=== PATIENT | female | born 1990 | race Caucasian/White ===

== ENCOUNTER 2017-09-24 12:29 | Emergency (ER) | payer BC, OTHER ==
--- NOTE | 2017-09-24 13:00 | EDPHYS ---
Physician Documentation [facility] Name: Nelly Shannon Age: 27 yrs Sex: Female : 1990 Arrival Date: 09/24/2017 Time: 12:37 Bed 20 Private MD: None, None ED Physician Dhaval Frances HPI: 09/24 12:52 This 27 yrs old Female presents to ER via Ambulatory with complaints of Cyst. gs 12:52 Description: The affected area is small, erythematous. Onset: The symptoms/episode gs began/occurred 1 week(s) ago, and became persistent. Possible cause(s): sebaceous cyst. Associated signs and symptoms: Pertinent negatives: fever. Severity of symptoms: At their worst the symptoms were moderate, in the emergency department the symptoms are unchanged. The patient has not experienced similar symptoms in the past. 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 - Social history:: Smoking status: Patient/guardian denies using tobacco, The patient lives at home. - Ebola Screening: : No symptoms or risks identified at this time. ROS: 12:56 Constitutional: Negative for fever. gs 12:56 All other systems are negative. Exam: 12:56 Head/Face: Normocephalic, atraumatic. Eyes: Pupils equal round and reactive to light, gs extra-ocular motions intact. Lids and lashes normal. Conjunctiva and sclera are non-icteric and not injected. Cornea within normal limits. Periorbital areas with no swelling, redness, or edema. ENT: Nares patent. No nasal discharge, no septal abnormalities noted. Tympanic membranes are normal and external auditory canals are clear. Oropharynx with no redness, swelling, or masses, exudates, or evidence of obstruction, uvula midline. Mucous membranes moist. Neck: Trachea midline, no thyromegaly or masses palpated, and no cervical lymphadenopathy. Supple, full range of motion without nuchal rigidity, or vertebral point tenderness. No Meningismus. Cardiovascular: Regular rate and rhythm with a normal S1 and S2. No gallops, murmurs, or rubs. Normal PMI, no JVD. No pulse deficits. Respiratory: Lungs have equal breath sounds bilaterally, clear to auscultation and percussion. No rales, rhonchi or wheezes noted. No increased work of breathing, no retractions or nasal flaring. Abdomen/GI: Soft, non-tender, with normal bowel sounds. No distension or tympany. No guarding or rebound. No evidence of tenderness throughout. 12:56 Constitutional: The patient appears alert, awake. 12:56 Chest/axilla: Breasts: mass(es), that is small, in the right breast, that is tender, some erythema mils, cyst like structure, mild ballotable with some induration. 12:56 Skin: cellulitis, that is minimal. Vital Signs: 12:48 BP 112 / 65; Pulse 99; Resp 18; Temp 98.5; Pulse Ox 99% ; Weight 99.79 kg; Height 5 ft. sv 2 in. (157.48 cm); Pain 1/10; 12:48 Body Mass Index 40.24 (99.79 kg, 157.48 cm) sv MDM: 12:50 Patient medically screened. [facility] 12:56 Differential diagnosis: abscess, cellulitis, sebaceous cyst. Data reviewed: vital gs signs, nurses notes. ED course: plan to cool down with abx plan to refer for cyst enucleation. Administered Medications: No medications were administered Disposition: 09/24/17 13:00 Discharged to Home. Impression: Sebaceous cyst, Cellulitis of chest wall. - Condition is Stable. - Discharge Instructions: Epidermal Cyst. - Prescriptions for Clindamycin HCl 150 mg Oral Capsule - take 2 capsule by ORAL route every 8 hours for 7 days; 42 capsule. - Medication Reconciliation Form, Thank You Letter, Antibiotic Education, Prescription Opioid Use form. - Follow up: Kalia Collazo MD; When: 2 - 3 days; Reason: Re-evaluation by your physician. Signatures: Nehal Vail RN RN sv Anderson, Corey, MD MD cha Starr, Gregory, MD MD Corrections: (The following items were deleted from the chart) 13:05 13:00 09/24/2017 13:00 Discharged to Home. Impression: Sebaceous cyst; Cellulitis of sv chest wall. Condition is Stable. Forms are Medication Reconciliation Form, Thank You Letter, Antibiotic Education, Prescription Opioid Use. Follow up: Kalia Collazo; When: 2 - 3 days; Reason: Re-evaluation by your physician. gs
--- NOTE | 2017-09-24 13:00 | ER ---
Nurse's Notes [facility] Name: Nelly Shannon Age: 27 yrs Sex: Female : 1990 Arrival Date: 09/24/2017 Time: 12:37 Bed 20 Private MD: None, None Diagnosis: Sebaceous cyst;Cellulitis of chest wall Presentation: 09/24 12:41 Presenting complaint: Patient states: she had a "little cyst" on her right breast and sv had well woman exam and it has grown since the MD was doing a breast exam. Redness has increased. Denies fever. Pt stated she attempted to augustni it at home. Transition of care: patient was not received from another setting of care. Onset of symptoms was September 2017. Risk Assessment: Do you want to hurt yourself or someone else? Patient reports no desire to harm self or others. Initial Sepsis Screen: Does the patient meet any 2 criteria? No. Patient's initial sepsis screen is negative. Does the patient have a suspected source of infection? No. Patient's initial sepsis screen is negative. Care prior to arrival: None. 12:41 Method Of Arrival: Ambulatory sv 12:41 Acuity: HEIDI 4 sv Triage Assessment: 12:41 General: Appears in no apparent distress. comfortable, Behavior is calm, cooperative, sv appropriate for age. Pain: Complains of pain in right breast Pain currently is 1 out of 10 on a pain scale. EENT: No signs and/or symptoms were reported regarding the EENT system. Neuro: Level of Consciousness is awake, alert, obeys commands, Oriented to person, place, time, situation, Moves all extremities. Full function Gait is steady. Cardiovascular: Patient's skin is warm and dry. Respiratory: Respiratory effort is even, unlabored, Respiratory pattern is regular, symmetrical. Derm: Skin is pink, warm \\T\\ dry. Abscess located on right breast is quarter sized, has no drainage, is red, is raised, was lanced by patient prior to arrival. 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 - Social history:: Smoking status: Patient/guardian denies using tobacco, The patient lives at home. - Ebola Screening: : No symptoms or risks identified at this time. Screenin:54 Abuse screen: Denies threats or abuse. Denies injuries from another. Nutritional sv screening: No deficits noted. Tuberculosis screening: No symptoms or risk factors identified. Fall Risk None identified. Assessment: 13:05 Reassessment: Patient appears in no apparent distress at this time. No changes from sv previously documented assessment. Patient and/or family updated on plan of care and expected duration. Pain level reassessed. Patient is alert, oriented x 3, equal unlabored respirations, skin warm/dry/pink. Vital Signs: 12:48 BP 112 / 65; Pulse 99; Resp 18; Temp 98.5; Pulse Ox 99% ; Weight 99.79 kg; Height 5 ft. sv 2 in. (157.48 cm); Pain 1/10; 12:48 Body Mass Index 40.24 (99.79 kg, 157.48 cm) sv ED Course: 12:37 Patient arrived in ED. mr 12:37 None, None is Private Physician. mr 12:41 Arm band placed on right wrist. sv 12:45 Dhaval Frances MD is Attending Physician. gs 12:45 Patient has correct armband on for positive identification. Placed in gown. Bed in low sv position. Pulse ox on. NIBP on. Door closed. Head of bed elevated. 12:46 Nehal Vail RN is Primary Nurse. sv 12:49 Served as a component engineer for breast exam for cyst. sv 12:51 Triage completed. sv 12:59 Kalia Collazo MD is Referral Physician. gs 13:05 Patient did not have IV access during this emergency room visit. sv Administered Medications: No medications were administered Outcome: 13:00 Discharge ordered by . gs 13:05 Discharged to home ambulatory. sv 13:05 Condition: stable 13:05 Discharge instructions given to patient, Instructed on discharge instructions, follow up and referral plans. medication usage, Demonstrated understanding of instructions, follow-up care, medications, Prescriptions given X 1. 13:05 Patient left the ED. sv Signatures: Nehal Vail RN RN Batsheva Daley mr Dhaval Frances MD MD gs
== END 2017-09-24 13:05 | disposition home or self-care (01) ==
LOC: ER 12:29
DX: L72.3 Sebaceous cyst (principal); L03.313 Cellulitis of chest wall; Z88.0 Allergy status to penicillin
CPT/HCPCS: 99283

== ENCOUNTER 2017-09-26 08:04 | Day surgery (SDC) | payer BC ==
[2017-09-26] MEDS: Ringers Lactate 1,000 ML IV ONE ×2 (08:34→09:17)
[2017-09-26] MEDS ORDERED: CIPROFLOXACIN 400mg IV 400 MG/200 ML BAG IV ONE (08:47)
[2017-09-26 08:51] LABS: Absolute Lymphocytes (CBC) 1.6 K/uL (0.7-4.9); Absolute Monocytes 0.7 K/uL (0.1-1.3); Absolute Neutrophil 5.2 K/uL (1.8-8.0); Basophils % 0.3 % (0-1.3); Eosinophils % 1.9 % (0-4.4); Hematocrit 40.8 % (36.0-45.0); Lymphocytes % 20.9 % (15.3-44.8); MCH 29.5 pg (27.0-35.0); MCV 88.5 fL (80-100); MPV 9.5 fL (7.6-11.3); Monocytes % 8.9 % (3.3-12.3); RBC Red Blood Cell Count 4.61 M/uL (3.86-4.86)
[2017-09-26] MEDS ORDERED: MIDAZOLAM HCL 2 MG/2 ML INJ ONE (09:16)
[2017-09-26] MEDS ORDERED: PROPOFOL 200 MG/20 ML VIAL IV ONE (09:24)
[2017-09-26] MEDS ORDERED: ONDANSETRON HCL 40 MG/20 ML VIAL ONE (09:25)
[2017-09-26] MEDS ORDERED: LIDOCAINE 2% MPF 5 ML VIAL ONE (09:25)
[2017-09-26] MEDS ORDERED: FENTANYL CITR 100 MCG/2 ML ONE (09:25)
[2017-09-26 09:33] LABS: BUN Blood Urea Nitrogen 10 mg/dL (7-18); Bicarbonate 25 mmol/L (21-32); Glucose Level 89 mg/dL (74-106); Potassium 3.6 mmol/L (3.5-5.1); Sodium Level 141 mmol/L (136-145)
--- NOTE | 2017-09-26 09:49 | P.BOP ---
Preoperative diagnosis: infected right breast mass with cellulitis Postoperative diagnosis: same Primary procedure: Right beast lumpectomy, infected with abscess drainage Orientor: DAVIAN BARBER Estimated blood loss: <10cc Specimen: mass and pus culture Findings: see dicta Anesthesia: General Complications: None Drain(s): Other Transferred to: Recovery Room Condition: Good
[2017-09-26] MEDS: MEPERIDINE HCL 25 MG/0.5 ML ONE ×2 (10:06→10:16)
--- NOTE | 2017-09-26 19:44 | OP ---
Surgeon: Kalia Collazo MD Preoperative Diagnoses: Infected right breast mass with cellulitis and abscess. Postoperative Diagnoses: Infected right breast mass with cellulitis and abscess. Procedures: Right breast lumpectomy 3 x 3 cm infected with the drainage of an abscess. Anesthesia: General plus local. Specimen: Mass and pus for culture. Findings: The patient has a mass on the right inner upper quadrant of her breast. There is associat ion of abscess near-by with cellulitis of the skin. Indications: This is a case of a 27-year-old patient, who comes to us with a mass, which she felt be fore palpated, but she has not taken care of it and now she noticed redness over the area and tender, and increased temperature. She comes to my office. She was diagnosed with a mass and also an absce ss. The benefits, alternatives, and risks of a right breast lumpectomy with drainage of abscess were fully explained to the patient, and also will be sent as a biopsy of the breast with benefits, alter natives, and risks including, but not limited to infection, bleeding, damage to adjacent structures, anesthesia complication, nonhealing wound, IA, and even . She also understands this may not rel ieve any symptoms. She might need more than one surgical intervention. She understands the importan ce of dressing changes after that and follow up with the biopsy of this to make sure we do not have a ny pathology or neoplastic event that requires further intervention. She feels comfortable doing the dressing changes. Description Of Procedure: The patient was brought to the operating room, placed in supine position. A time-out was called. Right breast was prepped and draped in a sterile fashion. After that, a sha rp incision of the skin was made over the erythematous areas and the skin was involved. We proceeded to take the skin with the mass itself. The incision was carried down all the way to the deep breast tissue. The mass was then incised, removed. We noticed next to the mass there is an abscess with p urulent discharge. Once the mass was removed, the abscess was addressed with loculations present. T he area was irrigated. The pus was cultured. Hemostasis was obtained, and the area was packed with wet-to-dry dressing. No other masses palpated in this area. The patient tolerated the procedure wel l. The patient was sent to Recovery in stable condition. DIAMANTE/ELVA Voice ID: [id number] Report ID: [id number]
--- NOTE | 2017-09-26 19:44 | DS ---
Date of Discharge: 09/26/2017 Diagnoses: Infected right breast mass with cellulitis and abscess. Procedure: Right breast lumpectomy, infected with abscess drainage. Disposition: Home. Activity: As tolerated. No heavy lifting. Follow up in my office in 1 week. Call for appointment [phone]. Keep area dry for 24 hours then remove the dressings, wet-to-dry normal saline daily, may take a shower with dressings off. Medications: Include Bactrim DS p.o. b.i.d., Tylenol No. 3 q.4 hours p.r.n. pain, and normal saline. Followup: Follow up in my office in 1 week. The patient was advised the importance in the future of breast examinations, and she may require imaging when she allows us to do so, since right now it is too tender. DIAMANTE/ELVA Voice ID: [id number] Report ID: [id number]
== END 2017-09-26 11:35 | disposition home or self-care (01) ==
LOC: OR 08:04
PROVIDERS: ATTEND Surgery
PROC: 0H9T0ZZ Drainage of Right Breast, Open Approach (ICD-10-PCS; 2017-09-26)
PROC: 0HBT0ZX Excision of Right Breast, Open Approach, Diagnostic (ICD-10-PCS; principal; 2017-09-26 10:00)
DX: L72.0 Epidermal cyst (principal); N60.81 Other benign mammary dysplasias of right breast; N61.1 Abscess of the breast and nipple; Z88.0 Allergy status to penicillin
CPT/HCPCS: 36415; 80048; 84703; 85025; 87070; 87075; 87205; 88304; 88305; J0744; J2175; J2250; J2405; J3010

== ENCOUNTER 2024-02-13 07:51 | Day surgery (SDC) | payer BC ==
--- OUTSIDE RECORDS SUMMARY | 2024-02-13 07:54 | XMS REPORT | Continuity of Care Document ---
Author Name Unknown Address [address] [place] [address] [address] [id number] [facility] thconnect Address [address] [facility] [address] [place] [address] Care Team Providers Care Cane Pusher Name Role Phone [email or web address] Attending Clinician Shannona twyla [email or web address] Admitting Clinician Shannona ble Payers Payer Name Policy Type Policy Number Effective Date Expirati on Date Source [place] [id number] 2020 00:00:00 Encounters Start Date/Time End Date/Time Encounter Type Admission Type Attending Clinicians Care Facility Care Department Encounter ID Source 2023-01-12 00:00:00 2023-01-12 00:00:00 Outpatient [email or web address] diyala_S PRIV PRIV [id number] [facility] 2023-01-12 00:00:00 2023-01-12 00:00:00 Outpatient [email or web address] diyala_S PRIV PRIV [id number] [facility] 2022-12-20 00:00:00 2022-12-20 00:00:00 Outpatient [email or web address] diyala_S PRIV PRIV [id number] [facility] 2022-12-16 00:00:00 2022-12-16 00:00:00 Outpatient [email or web address]_Ka diyala_S PRIV PRIV [id number] [facility] 2022-12-07 00:00:00 2022-12-07 00:00:00 Outpatient [email or web address] diyala_S PRIV PRIV [id number] [facility]
[2024-02-13] MEDS ORDERED: CLINDAMYCIN 600MG/D5W 50 ML IV ONE (08:20)
[2024-02-13 08:23] LABS: Absolute Basophils 0.1 K/uL (0-0.5); Absolute Eosinophils 0.3 K/uL (0-0.5); Absolute Lymphocytes (CBC) 1.7 K/uL (0.7-4.9); Absolute Monocytes 0.6 K/uL (0.1-1.3); Absolute Neutrophil 5.8 K/uL (1.8-8.0); Basophils % 0.7 % (0-1.3); Hematocrit 39.9 % (36.0-45.0); Hemoglobin 13.5 g/dL (12.0-15.0); Lymphocytes % 20.3 % (15.3-44.8); MCH 29.8 pg (27.0-35.0); MCHC 33.9 g/dL (32.0-36.0); MCV 88.2 fL (80-100); MPV 8.9 fL (7.6-11.3); Monocytes % 7.3 % (3.3-12.3); Neutrophils % 68.7 % (41.7-73.7); Platelets 263 thou/uL (152-406); RBC Red Blood Cell Count 4.53 M/uL (3.86-4.86); Red Cell Distribution Width 13.2 % (12.1-15.2)
[2024-02-13 08:38] LABS: Albumin 3.1 g/dL (3.4-5.0); Albumin/Globulin Ratio 0.6 (1.1-1.8); Anion Gap 7.4 mEq/L (5.0-15.0); Bilirubin Total 0.4 mg/dL (0.2-1.0); Globulin 4.8 g/dL (2.3-3.5); Potassium 3.4 mEq/L (3.5-5.1); Protein, Total 7.9 g/dL (6.4-8.2)
[2024-02-13 08:45] LABS: Urine Bacteria None Seen /HPF (<20); Urine Bilirubin NEGATIVE (Negative); Urine Blood Negative (Negative); Urine Clarity Extremely Turbid (Clear); Urine Color Yellow (Yellow); Urine Culture Reflex Order NOT NEEDED; Urine Glucose NEGATIVE (Negative); Urine Ketones NEGATIVE (Negative); Urine Microscopic Reflex YN ORDER UMIC; Urine Mucus 1+ /HPF (None Seen); Urine Nitrite NEGATIVE (Negative); Urine Protein TRACE (Negative); Urine RBC <5 /HPF (None Seen); Urine Urobilinogen Normal (Normal); Urine WBC <5 /HPF (<5)
--- NOTE | 2024-02-13 09:12 | RAD REPORT ---
EXAMINATION: Pelvis W/Cont CLINICAL INDICATION: Female, 33 years old. suprapubic abscess TECHNIQUE: CT pelvis was performed, with IV contrast, as per department protocol. Axial, sagittal and coronal reconstructions were obtained. One or more of the following dose reduction techniques were used: Automated exposure control, adjustment of the mA and/or kV according to patient size, and/or it erative reconstruction. Unless otherwise specified, incidental findings do not require dedicated imaging follow-up. [id number]. IV CONTRAST: Yes COMPARISON: No prior exam. FINDINGS: KIDNEYS AND URETERS: Normal size and contour. No hydronephrosis. GASTROINTESTINAL TRACT: Stomach is non-dilated. Small bowel has normal course and caliber. No colonic wall thickening or pericolonic inflammatory changes. LYMPH NODES: No lymphadenopathy. ABDOMINAL AORTA AND OTHER VESSELS: Normal caliber aorta and IVC. MUSCULOSKELETAL: No acute or suspicious osseous abnormality. ADDITIONAL FINDINGS: Midline enhancing fluid collection at the vagina measuring 1.9 x 1.2 x 3.7 cm. T his is at the 12:00 position. Stranding is present at the mons pubis. Small fat-containing periumbilical hernia. IMPRESSION: Midline enhancing fluid collection at the 12:00 position in the region of the labia concerning for an abscess.
--- NOTE | 2024-02-13 09:42 | EDPHYS ---
Physician Documentation [facility] Name: Nelly Shannon Age: 33 yrs Sex: Female : 1990 Arrival Date: 02/13/2024 Time: 07:51 Bed 20 Private MD: ED Physician Gilberto Carter HPI: 02/12 08:10 This 33 yrs old Female presents to ER via Ambulatory with complaints of abdominal sp3 abscess. 08:10 33-year-old female with history of multiple suprapubic abscesses operatively drained by sp3 Dr. Collazo now returns to the ED with chief complaint suprapubic abscess recurrent in nature for approximately 1 week. Patient states that the pain has increased there as well. She denies any fever, surface erythema or rash, lymphadenopathy, other abdominal pain, or any other signs or symptoms on ROS at this time.. Historical: - Allergies: 07:55 PENICILLINS; ll1 - PMHx: 08:00 None; ll1 - PSHx: 08:00 section; Breast reduction; ll1 - Immunization history:: Adult Immunizations up to date. - Infectious Disease History:: Denies. - Social history:: Smoking status: Patient denies any tobacco usage or history of. ROS: 08:11 Constitutional: Negative for fever, chills, and weight loss, Eyes: Negative for injury, sp3 pain, redness, and discharge, ENT: Negative for injury, pain, and discharge, Neck: Negative for injury, pain, and swelling, Cardiovascular: Negative for chest pain, palpitations, and edema, Respiratory: Negative for shortness of breath, cough, wheezing, and pleuritic chest pain, Abdomen/GI: Negative for abdominal pain, nausea, vomiting, diarrhea, and constipation, Back: Negative for injury and pain, MS/Extremity: Negative for injury and deformity, Neuro: Negative for headache, weakness, numbness, tingling, and seizure, Psych: Negative for depression, anxiety, suicide ideation, homicidal ideation, and hallucinations, Allergy/Immunology: Negative for hives, rash, and allergies, Endocrine: Negative for neck swelling, polydipsia, polyuria, polyphagia, and marked weight changes, 08:11 All other systems are negative, Exam: 08:11 Constitutional: This is a well developed, well nourished patient who is awake, alert, sp3 and in no acute distress. Head/Face: Normocephalic, atraumatic. Eyes: Pupils equal round and reactive to light, extra-ocular motions intact. Lids and lashes normal. Conjunctiva and sclera are non-icteric and not injected. Cornea within normal limits. Periorbital areas with no swelling, redness, or edema. Neck: Trachea midline, no thyromegaly or masses palpated, and no cervical lymphadenopathy. Supple, full range of motion without nuchal rigidity, or vertebral point tenderness. No Meningismus. Chest/axilla: Normal chest wall appearance and motion. Nontender with no deformity. No lesions are appreciated. Cardiovascular: Regular rate and rhythm with a normal S1 and S2. No gallops, murmurs, or rubs. Normal PMI, no JVD. No pulse deficits. Respiratory: Lungs have equal breath sounds bilaterally, clear to auscultation and percussion. No rales, rhonchi or wheezes noted. No increased work of breathing, no retractions or nasal flaring. Back: No spinal tenderness. No costovertebral tenderness. Full range of motion. MS/ Extremity: Pulses equal, no cyanosis. Neurovascular intact. Full, normal range of motion. Neuro: Awake and alert, GCS 15, oriented to person, place, time, and situation. Cranial nerves II-XII grossly intact. Motor strength 5/5 in all extremities. Sensory grossly intact. Cerebellar exam normal. Normal gait. Psych: Awake, alert, with orientation to person, place and time. Behavior, mood, and affect are within normal limits. 08:11 Skin: 4 cm x 4 cm area of mass consistent with possible abscess noted. Extensive scar tissue on the surface also noted. No surface erythema or the lymphadenopathy.. Vital Signs: 08:01 BP 127 / 71; Pulse 64; Resp 16; Temp 97.5; Pulse Ox 100% on R/A; Weight 101.15 kg; ll1 Height 5 ft. 2 in. ; Pain 7/10; 08:52 BP 125 / 77; Pulse 67; Resp 17; Pulse Ox 99% on R/A; rs5 10:02 BP 122 / 74; Pulse 74; Resp 17; Pulse Ox 99% on R/A; rs5 08:01 Body Mass Index 40.79 (101.15 kg, 157.48 cm) ll1 08:01 Pain Scale: Adult ll1 MDM: 07:56 Medical Screening Exam initiated sp3 08:12 Data reviewed: vital signs, nurses notes. ED course: 33-year-old female with recurrent sp3 abdominal wall abscess. Will obtain CT pelvis to assess size and exact location. IV clindamycin also ordered. Labs pending. Probable admission for general surgery consult for intervention.. 09:41 ED course: Labs within normal limits. Clindamycin given CT demonstrates a 4 cm abscess. sp3 Discuss[address] Collazo will be taking her to the OR and admitting to his service.. 02/12 08:08 Order name: CBC with Diff; Complete Time: 08:50 sp3 02/12 08:08 Order name: CMP; Complete Time: 08:50 sp3 02/12 08:08 Order name: Blood Culture Adult (2) sp3 02/12 08:18 Order name: Test, Urine; Complete Time: 08:50 bd 02/12 08:18 Order name: Urinalysis w/ reflexes; Complete Time: 08:50 mb9 02/12 08:08 Order name: CT Pelvis w cont; Complete Time: 09:23 sp3 02/12 08:08 Order name: IV Saline Lock; Complete Time: 08:16 sp3 02/12 08:08 Order name: Labs collected and sent; Complete Time: 08:16 sp3 02/12 08:08 Order name: NPO; Complete Time: 08:16 sp3 Administered Medications: 08:21 Not Given (Duplicate Order): [id number] mg IVPB once over 30 mins; (mix in 50 mL) mb9 08:33 Drug: Clindamycin IVPB 600 mg IVPB once over 30 mins; (mix in 50 mL) Route: IVPB; rs5 Infused Over: 30 mins; Site: right antecubital; 09:05 Follow up: Response: No adverse reaction; IV Status: Completed infusion; IV Intake: [id number] Disposition Summary: 02/13/24 09:41 Hospitalization Ordered Notes: Hospitalization Status: Observation sp3 Provider: Kalia Collazo spTrue Location: Telemetry/MedSurg (observation) sp3 Condition: Stable sp3 Problem: an acute exacerbation sp3 Symptoms: have worsened sp3 Bed/Room Type: Standard sp3 Room Assignment: sp3 Diagnosis - Suprapubic abscess sp3 Forms: - Medication Reconciliation Form sp3 - SBAR form sp3 - Leadership Thank You Letter sp3 Signatures: Dispatcher [employer] EDMS Gurmeet Jain RN RN ll1 Gilberto Carter MD MD sp3 Mariusz Espino RN RN rs5 Erin Kelly RN mb9 Corrections: (The following items were deleted from the chart) 08:09 08:09 CBC+H.LAB.BRZ ordered. EDMS EDMS 08: 08:09 COMPREHENSIVE METABOLIC PANEL+C.LAB.BRZ ordered. EDMS EDMS 08: 08:09 BLOOD CULTURE*+BA.LAB.BRZ ordered. EDMS EDMS 08:09 08:09 Pelvis W/Cont+CT.RAD.BRZ ordered. EDMS EDMS
--- NOTE | 2024-02-13 09:42 | ER ---
Nurse's Notes [facility] Name: Nelly Shannon Age: 33 yrs Sex: Female : 1990 Arrival Date: 02/13/2024 Time: 07:51 Bed 20 Private MD: Diagnosis: Suprapubic abscess Presentation: 02/12 08:01 Chief complaint: Patient states: Reports abscess to vaginal area for 1 week. No fever ll1 or drainage. Coronavirus screen: Client denies travel out of the [place] in the last 14 days. At this time, the client does not indicate any symptoms associated with coronavirus-19. Ebola Screen: Patient denies travel to an Ebola-affected area in the 21 days before illness onset. Initial Sepsis Screen: Does the patient meet any 2 criteria? No. Patient's initial sepsis screen is negative. Does the patient have a suspected source of infection? No. Patient's initial sepsis screen is negative. Risk Assessment: Do you want to hurt yourself or someone else? Patient reports no desire to harm self or others. Onset of symptoms was February 07, 2024. 08:01 Method Of Arrival: Ambulatory ll1 08:01 Acuity: HEIDI 3 ll1 Triage Assessment: 08:03 General: Appears uncomfortable, Behavior is calm, cooperative, appropriate for age. ll1 Pain: Complains of pain in vaginal area Quality of pain is described as aching. Derm: Abscess located on vaginal area. Historical: - Allergies: 07:55 PENICILLINS; ll1 - PMHx: 08:00 None; ll1 - PSHx: 08:00 section; Breast reduction; ll1 - Immunization history:: Adult Immunizations up to date. - Infectious Disease History:: Denies. - Social history:: Smoking status: Patient denies any tobacco usage or history of. Screenin:55 [facility] ED Fall Risk Assessment (Adult) History of falling in the last 3 months, rs5 including since admission No falls in past 3 months (0 pts) Confusion or Disorientation No (0 pts) Intoxicated or Sedated No (0 pts) Impaired Gait No (0 pts) Mobility Assist Device Used No (0 pt) Altered Elimination No (0 pt) Score/Fall Risk Level 0 - 2 = Low Risk Oriented to surroundings, Maintained a safe environment. Abuse screen: Denies threats or abuse. Nutritional screening: No deficits noted. Tuberculosis screening: No symptoms or risk factors identified. Assessment: 07:55 General: Appears in no apparent distress. uncomfortable, Behavior is calm, cooperative. rs5 Pain: Denies pain. Neuro: Level of Consciousness is awake, alert, obeys commands, Oriented to person, place, time, situation. Cardiovascular: Patient's skin is warm and dry. Respiratory: Airway is patent Respiratory effort is even, unlabored, Respiratory pattern is regular, symmetrical. GI: Abdomen is round non-distended, Abd is soft and non tender X 4 quads. : Reports cyst on vaginal area, no drainage. EENT: No signs and/or symptoms were reported regarding the EENT system. Derm: Skin is intact, Skin is pink, warm \T\ dry. Musculoskeletal: Range of motion: intact in all extremities. 08:51 Reassessment: Patient and/or family updated on plan of care and expected duration. Pain rs5 level reassessed. Patient is alert, oriented x 3, equal unlabored respirations, skin warm/dry/pink. 09:59 Reassessment: Patient and/or family updated on plan of care and expected duration. Pain rs5 level reassessed. Patient is alert, oriented x 3, equal unlabored respirations, skin warm/dry/pink. report given to OR nurse at bedside . Vital Signs: 08:01 BP 127 / 71; Pulse 64; Resp 16; Temp 97.5; Pulse Ox 100% on R/A; Weight 101.15 kg; ll1 Height 5 ft. 2 in. ; Pain 7/10; 08:52 BP 125 / 77; Pulse 67; Resp 17; Pulse Ox 99% on R/A; rs5 10:02 BP 122 / 74; Pulse 74; Resp 17; Pulse Ox 99% on R/A; rs5 08:01 Body Mass Index 40.79 (101.15 kg, 157.48 cm) ll1 08:01 Pain Scale: Adult ll1 ED Course: 07:54 Patient arrived in ED. im 07:55 Arm band placed on Patient placed in an exam room, on a stretcher. ll1 07:56 Gilberto Carter MD is Attending Physician. sp3 07:57 Mariusz Espino, RENE is Primary Nurse. rs5 08:03 Triage completed. ll1 08:16 Placed in gown. Bed in low position. Call light in reach. Side rails up X 1. Client mb9 placed on continuous cardiac and pulse oximetry monitoring. NIBP monitoring applied. 08:16 CBC with Diff Sent. mb9 08:16 CMP Sent. mb9 08:16 Blood Culture Adult (2) Sent. mb9 08:16 Initial lab(s) drawn, by ut, sent to lab. Inserted saline lock: 20 gauge in right mb9 antecubital area, using aseptic technique. Blood collected. Flushed with 10 mL NS. 08:16 Assist provider with pelvic exam: Performed by Gilberto Carter MD Patient tolerated well. mb9 08:24 Urinalysis w/ reflexes Sent. mb9 08:24 Test, Urine Sent. mb9 08:57 CT Pelvis w cont In Process Unspecified. EDMS 09:41 Kalia Collazo MD is Hospitalizing Provider. sp3 10:02 Patient admitted, IV remains in place. rs5 10:03 Provided Education on: need for admit. rs5 Administered Medications: 08:21 Not Given (Duplicate Order): [id number] mg IVPB once over 30 mins; (mix in 50 mL) mb9 08:33 Drug: Clindamycin IVPB 600 mg IVPB once over 30 mins; (mix in 50 mL) Route: IVPB; rs5 Infused Over: 30 mins; Site: right antecubital; 09:05 Follow up: Response: No adverse reaction; IV Status: Completed infusion; IV Intake: 15ulri3 Medication: 10:02 VIS not applicable for this client. rs5 Intake: 09:05 IV: 50ml; Total: 50ml. rs5 Outcome: 09:41 Decision to Hospitalize by Provider. sp3 10:02 Admitted to OR accompanied by nurse, with chart, rs5 10:02 Condition: stable 10:02 Instructed on the need for admit, Demonstrated understanding of instructions, 10:03 Patient left the ED. rs5 Signatures: Dispatcher [employer] [facility]NC Gurmeet Jain RN RN ll1 Gilberto Carter MD MD sp3 Erin Kelly RN RN mb9 Mariusz Espino RN RN rs5 Dotty Mcfarland
[2024-02-13] MEDS ORDERED: ONDANSETRON 4 MG/2 ML VIAL ONE (10:01)
[2024-02-13] MEDS ORDERED: FENTANYL CITR 100 MCG/2 ML ONE ×2 (10:01→10:51)
[2024-02-13] MEDS ORDERED: MIDAZOLAM HCL 2 MG/2 ML INJ ONE (10:01)
[2024-02-13] MEDS ORDERED: propofoL 200 MG/20 ML VIAL IV ONE (10:01)
[2024-02-13] MEDS ORDERED: LIDOCAINE 2% MPF 5 ML VIAL ONE (10:01)
[2024-02-13] MEDS ORDERED: Ringers Lactate 1,000 ML IV ONE (10:05)
[2024-02-13] MEDS ORDERED: dexAMETHasone 10 MG/ML VIAL ONE (10:34)
[2024-02-13] MEDS ORDERED: KETOROLAC 30 MG/ML INJ ONE (10:51)
--- NOTE | 2024-02-13 11:08 | P.BOP ---
Preoperative diagnosis: suprapubic cellulitis/abscess Postoperative diagnosis: same Primary procedure: I &D of suprapubic abscess [id number] Estimated blood loss: <10cc Specimen: pus Findings: lower suprapubic abscess with pus Anesthesia: General Complications: None Drain(s): Other (/" iodoform) Transferred to: Recovery Room Condition: Good
[2024-02-13 11:40] VITALS: O2SAT 100
[2024-02-13] MEDS ORDERED: HYDROCODONE/APAP 7.5/325 MG TAB PO ONE (12:12)
[2024-02-13] MEDS ORDERED: HYDROCODONE/APAP 7.5/325 MG TAB ONE (12:13)
[2024-02-13] MEDS ORDERED: IBUPROFEN 200 MG TAB PO ONE (12:27)
[2024-02-13] MEDS ORDERED: IBUPROFEN 400 MG TAB ONE (12:27)
[2024-02-13] MEDS: IBUPROFEN 400 MG TAB PO ONE (12:50)
[2024-02-13 13:16] VITALS: BP 128/79; TEMP 97.8
--- NOTE | 2024-02-13 19:11 | HP ---
Date of Admission: 02/13/2024 Diagnosis: Perineal and suprapubic abscess. 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 At thi s time shows an abscess. She had a CAT scan done in the ER and they called me for incision and drain age and antibiotics. She denies any trauma. Review of Systems: No shortness of breath. No chest pain. No fever. 10 points otherwise unremarkable. Allergies: PENICILLIN. Medication: She just received Cleocin in the ER. Past Surgical History: , breast reduction, multiple abscesses from suppurative hidradenitis . Social History: She does not smoke. She does not drink alcohol. Family History: Noncontributory. Review of Systems: Suprapubic pain, redness, increased temperature. 10 points otherwise unremarkable. No dysuria, caroline turia, hematochezia, melena. No vaginal discharge. No pus. Physical Examination: Vital Signs: Stable. General: The patient is awake, alert. HEENT: Pupils are equal and reactive. Anicteric. Neck: Supple. Chest: Clear. Heart: S1, S2. Abdomen: Soft and depressible. No guarding or rebound. Breasts: Deferred. Rectal: Deferred. Genitalia: Over the suprapubic area, there is a large area of swelling, induration, tenderness that is the point that she says is worse, extends swelling all the way down to the right labia, although I cannot feel any fluctuance in that area. There is fluctuance in the suprapubic region and near the mons pubis. Extremities: Good capillary refill. Neurologic: Cranial nerves 2-12 grossly within normal limits. Laboratory Data: WBC count is 8.5, hemoglobin of 13.5. . CAT scan of the abdomen and pel vis interpreted by Dr. Austin. Midline enhancing fluid collection at the 12 o'clock position in the ar ea of the genitalia and the labia. Consistent with an abscess. Assessment: This is a 33-year-old patient with a suprapubic mons pubis abscess with swelling extendi ng to the genitalia. Fluctuance is present on the area of the mons pubis with abscess and cellulitis present. The patient will go for incision and drainage and debridement with benefits, alternatives, and risks, including but not limited to infection, bleeding, damage to adjacent structures, anesthes ia complication, nonhealing wound, NH, even . She also understands this may not relieve her sym ptoms. She might need more than one surgical intervention. She understands also she will require wo und care. She prefers to go home today if possible. We will see how severe it is and then we will p roceed accordingly. She is used to do packing. DIAMANTE/ELVA Voice ID: [id number]
--- NOTE | 2024-02-13 21:17 | OP ---
Date of Procedure: 02/13/2024 Surgeon: Kalia Collazo MD Preoperative Diagnosis: Suprapubic cellulitis with abscess. Postoperative Diagnosis: Suprapubic cellulitis with abscess. Procedure: Incision and drainage of complex suprapubic abscess about 4 x 3 x 2 cm. Anesthesia: General plus local. Complications: None. Packing: Iodoform quarter of an inch. Findings: Complex abscess, multiple loculations, suprapubic, extending to the right and left genital ia. Indications: This is a case of a 33-year-old patient with fullness, tenderness, erythema, just in th e lower part of the mons pubis, just near the external genitalia. The patient was booked for incisio n and drainage of an abscess with benefits, alternatives, and risks including, but not limited to, in fection, bleeding, damage to adjacent structures, anesthesia complication, recurrence, [place], and even d eath. She also understands this may not relieve any symptoms. She might need more than one surgical intervention. She understood, signed a consent. Procedure In Detail: Area was marked by me and the patient in the holding room. The patient was bro ught to the operating room, placed in supine position. Anesthesia was done without complication. Th e suprapubic area was prepped and draped in sterile fashion. Time-out was called. Local anesthesia was applied, followed by sharp incision of the skin. We went just above the genitalia, in the lower part of the suprapubic, and when we put an incision there, leigh ann pus came out that area. We introduc ed our fingers and broke the loculations, went to the right and left of the genitalia, did not come t hrough the vagina itself, just through the labia. The area was irrigated, hemostasis was obtained, a nd then the area was packed with iodoform quarter of an inch. The patient tolerated procedure well. The patient was sent to recovery in stable condition. DIAMANTE/ELVA Voice ID: [id number] Report ID: [id number]
--- NOTE | 2024-02-13 21:20 | DS ---
Date of Discharge: 02/13/2024 Diagnosis: Suprapubic abscess and cellulitis. Procedure: I and D of complex suprapubic abscess, 4 x 3 x 2 cm. Condition: Stable. Disposition: Home. Activity: As tolerated. No heavy lifting. Discharge Instructions: She wants to go home. Her mother knows how to do the dressing changes, so w dat are going to send her home with instructions and a quarter of an inch iodoform or Nu Gauze. Follow up in my office in a week. Antibiotics will be called to the pharmacy. DIAMANTE/ELVA Voice ID: [id number] Report ID: [id number]
== END 2024-02-13 13:00 | disposition home or self-care (01) ==
LOC: ER 07:51 → DS 11:05
PROVIDERS: ATTEND Surgery
PROC: 0J9C0ZZ Drainage of Pelvic Region Subcutaneous Tissue and Fascia, Open Approach (ICD-10-PCS; principal; 2024-02-13 11:30)
DX: N76.4 Abscess of vulva (principal); N76.2 Acute vulvitis; E66.01 Morbid (severe) obesity due to excess calories; Z88.0 Allergy status to penicillin; Z68.41 Body mass index [BMI] 40.0-44.9, adult
CPT/HCPCS: 56405; 87040 ×2; 87070; 85025; 81001; 36415; 87205; 81025; 87075; 80053; 72193; Q9967; J2704; J2003; J2250; J3010 ×2; J1100; J2405; J7120